=== PATIENT | male | born 1955 | race Caucasian/White ===

== ENCOUNTER 2024-04-19 06:51 | Day surgery (SDC) | payer MEDICARE ==
[~2024-04-19] VITALS: Ht 162.6 cm; Wt 79.5 kg
[2024-04-19] VITALS (11 sets, daily range): BP systolic 123–188; BP diastolic 69–95; PULSE 53–69
[~2024-04-19 06:51] MED LIST: SODIUM CHLORIDE 0.9% 1,000 ML ONE
[2024-04-19 08:09] LABS: BASOPHILS % (AUTO) 0.2 % (0.0-2.0); EOSINOPHILS % (AUTO) 0.9 % (1.0-6.0); HEMATOCRIT 46.5 % (41-53); HEMOGLOBIN 15.8 g/dL (13.5-17.5); LYMPHOCYTES # (AUTO) 0.9 K/uL (1.0-4.8); MEAN CORPUSCULAR HEMOGLOBIN 29.5 pg (26.0-34.0); MEAN CORPUSCULAR VOLUME 87 fL (80-100); MONOCYTES # (AUTO) 0.4 K/uL (0.1-1.0); MONOCYTES % (AUTO) 10.8 % (2.0-9.0); NEUTROPHILS # (AUTO) 2.7 K/uL (1.8-7.7); NEUTROPHILS % (AUTO) 66.1 % (40.0-70.0); PLATELET COUNT (AUTO) 129 K/uL (150-450); RED BLOOD CELL COUNT(AUTO) 5.37 MIL/uL (4.50-5.90); RED CELL DISTRIBUTION WIDTH 14.5 % (11.5-14.5); WHITE BLOOD COUNT (AUTO) 4.1 K/uL (4.5-11.0)
[2024-04-19] MEDS: SODIUM CHLORIDE 0.9% 1,000 ML IV ONE (08:16)
[2024-04-19 08:24] LABS: PROTHROMBIN TIME 10.7 SEC (9.4-11.6)
[2024-04-19] MEDS ORDERED: HEPARIN SODIUM 1000 UNITS/NS 1,000 ML ONE (08:24)
[2024-04-19] MEDS ORDERED: LIDOCAINE/PF 1% 30 ML VIAL ONE (08:24)
[2024-04-19] MEDS ORDERED: IOHEXOL 300 MG/ML 100 ML VIAL ONE (08:24)
[2024-04-19] MEDS ORDERED: SODIUM BICARBONATE 50 MEQ/50 ML VIAL ONE (08:24)
[2024-04-19] MEDS ORDERED: VERAPAMIL HCL 2.5 MG/ML 2 ML VIAL ONE (08:27)
[2024-04-19] MEDS ORDERED: NITROGLYCERIN 50 MG/D5% WATER 250 ML ONE (08:27)
[2024-04-19 08:29] LABS: ANION GAP 5 mmol/L (8-16); CALCIUM, TOTAL 8.6 mg/dL (8.8-10.5); CARBON DIOXIDE 32 mmol/L (22-29); CHLORIDE 106 mmol/L (98-107); CREATININE 0.84 mg/dL (0.60-1.30); GLOMERULAR FILTR. RATE CALC > 60 mL/min (>60); GLUCOSE,RANDOM 125 mg/dL (70-110); POTASSIUM 4.2 mmol/L (3.5-5.1); SODIUM SERUM 143 mmol/L (136-145); UREA NITROGEN, BLOOD 18 mg/dL (7-18)
[2024-04-19] MEDS ORDERED: MIDAZOLAM HCL 2 MG/2 ML VIAL ONE (09:05)
[2024-04-19] MEDS ORDERED: FentaNYL CITRATE PF 100 MCG/2 ML VIAL ONE (09:05)
[2024-04-19] MEDS ORDERED: IOHEXOL 300 MG/ML 50 ML VIAL ONE (09:30)
[2024-04-19] MEDS: VERAPAMIL HCL 2.5 MG/ML 2 ML VIAL IARTER ONE (09:43)
[2024-04-19] MEDS: NITROGLYCERIN/D5W 50 MG/250 ML IV BOTTLE IARTER ONE (09:44)
[2024-04-19] MEDS: HEPARIN SODIUM,PORCINE 1,000 UNITS/ML 10 ML VIAL IARTER ONE (09:44)
[2024-04-19] MEDS: IOHEXOL 300 MG/ML 100 ML VIAL ICOR ONE (09:45)
[2024-04-19] MEDS: LIDOCAINE 1% 30 ML/SOD BICARB 8.4% 4 ML SQ ONE (09:45)
[2024-04-19] MEDS: IOHEXOL 300 MG/ML 50 ML VIAL IARTER ONE (09:46)
[2024-04-19] MEDS: HEPARIN SODIUM 1000 UNITS/NS 1,000 ML IARTER ONE (09:46)
[2024-04-19] MEDS ORDERED: LISI-894 PO (10:13)
[2024-04-19] MEDS ORDERED: NITR0.4T52 SL (10:13)
[2024-04-19] MEDS ORDERED: AMLO-257 PO (10:13)
[2024-04-19] MEDS ORDERED: ATOR40TA28 PO (10:13)
[2024-04-19] MEDS ORDERED: METO-325 PO (10:13)
[2024-04-19] MEDS ORDERED: ASPI-1444 PO (10:13)
[2024-04-19] MEDS ORDERED: EMPA10TA3 PO (10:13)
[2024-04-19] MEDS ORDERED: OMEP20 PO (10:13)
[2024-04-19] MEDS: EMPAGLIFLOZIN 10 MG TABLET PO ONE (11:24)
[2024-04-19] MEDS: AmLODIPine BESYLATE 5 MG TABLET PO ONE (11:24)
[2024-04-19] MEDS: ASPIRIN 81 MG CHEWABLE TABLET PO ONE (11:24)
[2024-04-19] MEDS: OMEPRAZOLE 20 MG CAPSULE PO ONE (11:24)
[2024-04-19] MEDS: LISINOPRIL 20 MG TABLET PO ONE (11:27)
[2024-04-19] MEDS: METOPROLOL SUCCINATE 50 MG ER TABLET PO ONE (11:28)
[2024-04-19] MEDS: ATORVASTATIN CALCIUM 40 MG TABLET PO ONE (11:29)
== END 2024-04-19 14:15 | disposition home or self-care (01) ==
LOC: CATHLAB 06:51
PROVIDERS: ATTEND Internal Medicine Cardiovascular Disease
DX: I25.10 Atherosclerotic heart disease of native coronary artery without angina pectoris (principal); I10 Essential (primary) hypertension; E78.5 Hyperlipidemia, unspecified; Z86.73 Personal history of transient ischemic attack (TIA), and cerebral infarction without residual deficits; M89.662 Osteopathy after poliomyelitis, left lower leg; Z79.01 Long term (current) use of anticoagulants; Z79.899 Other long term (current) drug therapy; E78.00 Pure hypercholesterolemia, unspecified
CPT/HCPCS: 93458; 80048; 85025; 85610; 85730; 36415; 93005; J1644; J3490 ×4; J7030; Q9967 ×2; J2250; J3010